=== PATIENT | female | born 1965 | race Caucasian/White ===

== ENCOUNTER → 2016-07-24 | Outpatient (CLI) | payer BC ==
--- NOTE | 2016-07-24 15:10 | KCIC ---
MR of the left knee HISTORY: Left knee pain and catching for 5 months TECHNIQUE: Routine multiplanar sequences are obtained. FINDINGS: Mild signal within the medial meniscus and within the posterior root compatible with degeneration. Extrusion of the meniscus from the joint compartment. No clear-cut medial meniscal tear. Increased signal within the anterior horn of the lateral meniscus compatible with a tear. Extrusion of the lateral meniscus from the joint compartment. Anterior and posterior cruciate ligaments are intact. Medial collateral ligament is intact. Iliotibial band unremarkable. Fibular collateral ligament, biceps femoris tendon and popliteus tendon are intact. Extensor mechanism is intact. Moderate joint effusion. Small round structure in the medial gastrocnemius recess, posterior to the femoral metaphysis, compatible with a small loose body. Severe patellofemoral joint chondromalacia, particularly at the lateral aspect, with subchondral cysts, edema and surface exposure. Moderate to severe medial and lateral compartment chondromalacia. No acute fracture. No aggressive bone destruction. Trace Snow's cyst. IMPRESSION: 1. Primary osteoarthritis, most severe at the patellofemoral joint. 2. Medial meniscal degeneration and extrusion but without a clearcut tear. 3. Anterior horn lateral meniscal tear. 4. Small loose body within the medial gastrocnemius recess. Electronically signed by: Diogo Sagastume MD (07/24/2016 3:07 PM)
== END | disposition home or self-care (01) ==
LOC: KCIC MRI 13:42
PROVIDERS: ATTEND Nurse Practitioner Family
DX: S83.282A Other tear of lateral meniscus, current injury, left knee, initial encounter (principal); M17.12 Unilateral primary osteoarthritis, left knee; X58.XXXA Exposure to other specified factors, initial encounter; M22.42 Chondromalacia patellae, left knee; M25.462 Effusion, left knee; M71.22 Synovial cyst of popliteal space [Baker], left knee; Y99.8 Other external cause status; Y92.89 Other specified places as the place of occurrence of the external cause; Y93.89 Activity, other specified
CPT/HCPCS: 73721

== ENCOUNTER → 2019-09-25 | Outpatient (CLI) | payer BC ==
[2019-09-25 16:10] LABS: BASO % 0 % (0-3); EOS # 0.1 x10^3/uL (0.0-0.7); EOS % 1 % (0-3); HEMATOCRIT 38.7 % (36.0-47.0); HEMOGLOBIN 12.9 g/dL (12.0-15.5); LYMPH # 2.2 x10^3/uL (1.0-4.8); LYMPH % 22 % (24-48); MEAN CORPUSCULAR HEMOGLOBIN 28 pg (25-35); MEAN CORPUSCULAR HGB CONC 33 g/dL (31-37); MEAN CORPUSCULAR VOLUME 85 fL (79-100); MONO # 0.6 x10^3/uL (0.0-1.1); MONO % 6 % (0-9); NEUT # 7.1 x10^3/uL (1.8-7.7); NEUT % 71 % (31-73); PLATELET COUNT 274 x10^3/uL (140-400); RED BLOOD COUNT 4.56 x10^6/uL (3.50-5.40)
[2019-09-25 16:27] LABS: CALCIUM 8.6 mg/dL (8.5-10.1); CREATININE 0.7 mg/dL (0.6-1.0); GFR 87.5; POTASSIUM 3.5 mmol/L (3.5-5.1)
[2019-09-25 16:34] LABS: ALBUMIN 3.5 g/dL (3.4-5.0); TOTAL BILIRUBIN 0.4 mg/dL (0.2-1.0)
== END ==
LOC: ONCLAB 15:43
PROVIDERS: ATTEND Internal Medicine Hematology & Oncology
DX: K90.0 Celiac disease (principal)
CPT/HCPCS: 36415; 80053; 83615; 85025; 86162; 86703

== ENCOUNTER → 2020-04-11 | Outpatient (CLI) | payer OTHER ==
[~2020-04-11] MED LIST: AMLO-187 PO; MONT10TA49 PO; OMEP20TA63 PO; OXYC1TAB15 PO
== END ==
LOC: LAB 12:46
PROVIDERS: ATTEND Surgery
DX: Z01.812 Encounter for preprocedural laboratory examination (principal); K80.10 Calculus of gallbladder with chronic cholecystitis without obstruction; Z88.1 Allergy status to other antibiotic agents; Z20.822 Contact with and (suspected) exposure to COVID-19
CPT/HCPCS: U0003

== ENCOUNTER 2020-04-14 06:02 | Day surgery (SDC) | payer OTHER ==
[~2020-04-14] VITALS: Ht 172.7 cm; Wt 106.5 kg
[~2020-04-14 06:02] MED LIST changes: +ACETAMINOPHEN 500 MG TABLET PO PRN; -AMLO-187 PO; +IV RINGERS,LACTATED 1000ML 1,000 ML IV SCH; -MONT10TA49 PO; -OMEP20TA63 PO; -OXYC1TAB15 PO; +PROCHLORPERAZINE 10 MG/2 ML VIAL. IVP PRN; +fentaNYL PF VIAL 100 MCG/2 ML VIAL IVP PRN
[2020-04-14] MEDS ORDERED: MONT10TA49 PO (06:28)
[2020-04-14] MEDS ORDERED: AMLO-187 PO (06:28)
[2020-04-14] MEDS ORDERED: OMEP20TA63 PO (06:28)
[2020-04-14] MEDS ORDERED: DEXAMETHASONE SOD PHOS 4 MG/ML VIAL ONE (06:54)
[2020-04-14] MEDS ORDERED: LIDOCAINE 2% PF 5 ML VIAL. ONE (06:54)
[2020-04-14] MEDS ORDERED: ONDANSETRON PF 4 MG/2 ML VIAL. ONE (06:54)
[2020-04-14] MEDS ORDERED: PROPOFOL 10 MG/ML (20ML) VIAL. IV ONE (06:54)
[2020-04-14] MEDS ORDERED: ROCURONIUM 50 MG/5 ML VIAL. ONE ×2 (06:54→07:01)
[2020-04-14] MEDS ORDERED: SURGICEL HEMOSTAT 4X8 EACH. ONE (07:03)
[2020-04-14] MEDS ORDERED: BUPIVACAINE-EPI 0.25% 30 ML VIAL KIT. ONE (07:03)
[2020-04-14] MEDS ORDERED: IOHEXOL 300 MG/ML 50 ML VIAL. ONE (07:03)
[2020-04-14] MEDS ORDERED: fentaNYL PF VIAL 250 MCG/5 ML VIAL ONE (07:22)
[2020-04-14] MEDS ORDERED: MIDAZOLAM HCL/PF 2 MG/2 ML VIAL. ONE (07:22)
[2020-04-14] MEDS ORDERED: ePHEDrine PF IN SALINE 50 MG/10 ML SYRINGE. IV ONE (07:55)
[2020-04-14] MEDS ORDERED: SEVOFLURANE 61 TO 120 MINUTES. IH ONE (07:59)
[2020-04-14] MEDS ORDERED: GLYCOPYRROLATE 1 MG/5 ML VIAL. ONE (08:04)
[2020-04-14] MEDS ORDERED: NEOSTIGMINE METHYLSULFATE 5 MG/5 ML SYRINGE. ONE (08:04)
--- NOTE | 2020-04-14 08:12 | PDOC4 ---
Operative Note Operative Note Date: April 142020 at 810 Preoperative diagnosis: Chronic cholecystitis cholelithiasis Postoperative diagnosis: Same Procedure: Laparoscopic cholecystectomy Surgeon: Mao Specimen: Gallbladder Dictation: Patient is a 54-year-old female with right upper quadrant abdominal pain ultrasound showing gallstones. Procedure of laparoscopic cholecystectomy was explained to the patient detail risk benefits were also discussed including bleeding infection injury to intra-abdominal contents possible necessitating further or open operations alternatives to this procedure also discussed with the patient who seemed to understand and gave both verbal and written consent to have the procedure performed. Patient was taken to the operating room placed in the supine position general anesthesia was initiated once patient was sleeping intubated her abdomen was prepped and draped usual sterile fashion using ChloraPrep. Area just below the umbilicus was injected with quarter percent Marcaine with epinephrine incision was made 11 blade scalpel and a varies needle was placed within the abdomen creating pneumoperitoneum once this was complete the millimeter port was placed and a 5 mm camera is placed within the abdomen no other abnormalities were noted. A 5 mm port was placed in the epigastrium a 5 mm port was placed in the right midabdomen and a 5 mm port was placed in the right lateral abdomen. The dome of the gallbladder is grasped retracted cephalad the infundibulum the gallbladder is grasped retracted laterally exposing the triangle of adherent tissues the triangle were taken down exposing the cystic duct and cystic artery both were doubly clipped and transected the gallbladder is taken off the liver with hook electrocautery placed in Endo Catch bag removed from the umbilicus right upper quadrant was irrigated and suctioned dry hemostasis deemed to be appropriate the pneumoperitoneum was reduced all ports were removed the fascial defect at the umbilicus was closed with a [id number] 0 Vicryl suture and the skin was reapproximated all port sites 4-0 subcuticular Monocryl. Mastisol Steri-Strips and island dressings were applied. Patient was awakened and extubated operating room taken to recovery in stable condition all sponge instrument needle counts listed as correct estimated blood loss 10 mL. VINI KEVIN MD Apr 14, 2020 08:12
--- NOTE | 2020-04-14 08:17 | DISCH ---
DISCHARGE INSTRUCTIONS Condition on Discharge Condition on Discharge: Stable Activity After Discharge Activity Instructions for Disc: Avoid exertion Other activity instructions: No lifting more than 20 pounds for 2 weeks Diet after Discharge Diet after Discharge: Low Fat Wound Incision Care Other wound/incision instructi: May shower in 24 hours Contacting the after DC Call your doctor for: If your condition worsens Follow-Up Follow up with: Dr. Kevin in 2 weeks VINI KEVIN MD Apr 14, 2020 08:17
[2020-04-14] MEDS ORDERED: MORPHINE SULFATE 2 MG/ML VIAL. ONE (08:34)
[2020-04-14] MEDS ORDERED: PROCHLORPERAZINE 10 MG/2 ML VIAL. ONE (08:34)
[2020-04-14] MEDS ORDERED: OXYC1TAB15 PO (08:35)
[2020-04-14] MEDS ORDERED: ALBUTEROL SULFATE 2.5 MG/3 ML NEBU. NEB ONE (08:45)
[2020-04-14] MEDS: MORPHINE SULFATE 2 MG/ML VIAL. IVP PRN ×2 (08:46→08:56)
[2020-04-14] MEDS ORDERED: HYDROmorphone 2 MG/ML VIAL ONE (09:05)
[2020-04-14] MEDS: HYDROmorphone 2 MG/ML VIAL IVP PRN ×2 (09:06→09:18)
[2020-04-14] MEDS ORDERED: oxyCODONE/APAP 5/325 1 TAB TABLET PO ONE ×2 (09:15)
[2020-04-14 09:29] VITALS: BP 122/50
== END 2020-04-14 10:03 | disposition home or self-care (01) ==
LOC: SURG 06:02
PROVIDERS: ATTEND Surgery
DX: K80.10 Calculus of gallbladder with chronic cholecystitis without obstruction (principal); I10 Essential (primary) hypertension; E78.00 Pure hypercholesterolemia, unspecified; J45.909 Unspecified asthma, uncomplicated; E66.9 Obesity, unspecified; K21.9 Gastro-esophageal reflux disease without esophagitis; M19.90 Unspecified osteoarthritis, unspecified site; Z79.899 Other long term (current) drug therapy; Z98.890 Other specified postprocedural states; Z68.35 Body mass index [BMI] 35.0-35.9, adult
CPT/HCPCS: 47562; 81025; J0690; J0780; J1100; J1170; J2250; J2270; J2405; J2704; J2710; J3010; J3490; J7120; J7613; Q9967